=== PATIENT | female | born 1965 | race Caucasian/White ===

== ENCOUNTER 2023-06-22 11:54 | Day surgery (SDC) | payer OTHER ==
[~2023-06-22] VITALS: Ht 170.2 cm; Wt 81.8 kg
[~2023-06-22 11:54] MED LIST: ADDERALL 10 MG10 MG PO; ATORVASTATIN CA10 MG PO; CIPRO500 MG PO; DEXTROAMP-AMPHE10 MG PO; FLAGYL250 MG PO; NORCO 5-325 TA1 EACH PO; TRETINOIN20 G1 TOP; XANAX0.25 MG PO
[2023-06-22 12:16] VITALS: BP 122/91
--- NOTE | 2023-06-22 13:47 | NUR ---
06/22/23 1347 Lois Ramey 1338- PT ARRIVES TO PACU, LEFT LATERAL POSITION. LR INFUSING TO RH IV, O2 AT 3L PER NC. PT AROUSES TO VOICE, REORIENTED TO TIME AND PLACE. ABD SOFT AND NON DISTENDED. BREATHING EVEN AND NON LABORED. ALL MONITORS IN PLACE. 1343- PT CONTINUES TO REST INTERMITTENTLY. PLACED ON ROOM AIR AT THIS TIME. WILL CONTINUE TO MONITOR.
[2023-06-22 14:27] VITALS: BP 115/73
--- NOTE | 2023-06-25 08:41 | OR ---
[facility] [address] [place], [place] [address] Signed DATE OF OPERATION: 06/22/2023 SURGEON: Tiffani Tilley MD PREOPERATIVE DIAGNOSIS: Substernal and epigastric debilitating pain (episodic). POSTOPERATIVE DIAGNOSIS: Mild distal esophagitis; normal flap valve, mild antral gastritis. PROCEDURE: Esophagogastroduodenoscopy with biopsy. ANESTHESIA: Intravenous sedation fentanyl 100 mcg and Versed 4 mg. INDICATION: This 57-year-old white woman is a patient of Dr. Mc in [place], [place]. I have known her since she was 30 years old at which time breast cancer treatment was undertaken on the left side. She has had no recurrence of the breast cancer in the past 27 years. She recently has been affected by episodes of substernal pain and epigastric pain causing debilitating discomfort. She was treated empirically with PPI medication and possibly Carafate which was somewhat helpful though her symptoms continued to occur. She does not have typical reflux symptoms from the past. She has been afflicted by episodic diverticulitis but none in the past year or so. She is admitted at this time to undergo upper endoscopy to better characterize the problem. She understands the risk of bleeding, infection, perforation, and other unforeseen complications related to upper endoscopy and wished to proceed. FINDINGS: Upper endoscopy was somewhat unremarkable actually. There was mild distal esophagitis, but no ulceration. There were few gastric polyps. The flap valve was normal. Vocal cords were normal. CLOtest was negative. PROCEDURE IN DETAIL: The patient was brought to the endoscopy suite and placed in lateral decubitus position given topical hypopharyngeal anesthesia. A bite block was placed and intravenous Electronically Signed By: TIFFANI TILLEY MD 06/25/23 0841 PATIENT NAME: IWONA PITTMAN OPERATIVE REPORT DATE OF : 61 REPORT #: [id number] PHYSICIAN: TIFFANI TILLEY MD PCP: ALETHEA MC DO REPORT IS CONFIDENTIAL AND NOT TO BE RELEASED WITHOUT AUTHORIZATION [facility] [address] [place], [place] [address] Signed sedation administered to point of slurred speech and nystagmus. The Olympus video upper endoscope was passed in the hypopharynx. The vocal cords were found to be normal. Scope was advanced to the esophagus without problem. Throughout its length it was reasonably normal. There was mild inflammatory change of the distal portion, but no ulceration, Sapp's epithelium, neoplasm, or other issue. Scope was passed to the stomach which was insufflated with air. Rugal folds were normal. Scope was passed in the antrum. The pylorus was normal. Scope was passed through into the duodenum, which was essentially normal. Biopsies were taken of the 3rd, 2nd, and bulbar portions to assess for celiac disease or other problem. Careful inspection of the bulb showed no sign of ulceration. The scope was withdrawn to the antrum where biopsies were taken for both CHRISTEN and pathologic testing. Retroflexed view showed a very good flap valve. No sign of hiatal hernia. The scope was straightened and withdrawn. There were a few gastric polyps of little consequence and typical of fundic gland polyps. The scope was withdrawn to the distal esophagus and biopsies taken there as well as in the mid esophagus. The scope was carefully withdrawn and removed. The patient was taken to the recovery room in good condition. CONCLUDING DIAGNOSIS: Relatively normal upper endoscopy with mild distal esophagitis. PLAN: I will review the workup she has had already, but a CT scan of the abdomen, chest and pelvis would be advisable under the circumstances of her prior history of malignancy. This may represent diffuse esophageal spasm for which diltiazem calcium channel hakan may be advisable (15-30 mg p.o. t.i.d.). We will await if the CT scan before initiating such an intervention. She should continue on the PPI medication. She will see me back in the office following imaging studies. MD DOLLY Godinez/MODL /[id number] cc: Dr. Alexandro TrinidadAhmeek, [place] Electronically Signed By: TIFFANI TILLEY MD 06/25/23 0841 PATIENT NAME: IWONA PITTMAN OPERATIVE REPORT DATE OF : 61 REPORT #: [id number] PHYSICIAN: TIFFANI TILLEY MD PCP: ALETHEA MC DO REPORT IS CONFIDENTIAL AND NOT TO BE RELEASED WITHOUT AUTHORIZATION [facility] [address] [facility] [place], [place] [address] Signed Copies: ~ Electronically Signed By: TIFFANI TILLEY MD 06/25/23 0841 PATIENT NAME: IWONA PITTMAN OPERATIVE REPORT DATE OF : 61 REPORT #: [id number] PHYSICIAN: TIFFANI TILLEY MD PCP: ALETHEA MC DO REPORT IS CONFIDENTIAL AND NOT TO BE RELEASED WITHOUT AUTHORIZATION
--- NOTE | 2023-06-26 06:01 | PATH ---
[facility] [address] [place], [place] [address] Signed SPECIMEN(S): A DUODENAL BIOPSY SPECIMEN(S): B ANTRUM/ANTRAL BIOPSY SPECIMEN(S): C DISTAL ESOPHAGEAL BIOPSY SPECIMEN(S): D MID ESOPHAGEAL BIOPSY SPECIMEN SOURCE: A. DUODENAL BIOPSY B. ANTRUM/ANTRAL BIOPSY C. DISTAL ESOPHAGEAL BIOPSY D. MID ESOPHAGEAL BIOPSY CLINICAL HISTORY: EGD. Upper abdominal pain. Postop: Mild esophagitis. FINAL PATHOLOGIC DIAGNOSIS: A. Duodenal biopsy: - Benign duodenal mucosa, negative for specific diagnostic abnormality. B. Antrum/antral biopsy: - Benign gastric-type mucosa with focal slight chronic inflammation. - Negative for evidence of Helicobacter organisms on routine HE stain sections. C. Distal esophageal biopsy: - Benign esophageal and gastric-type mucosa with reactive features and mild chronic inflammation. - Negative for specialized intestinal metaplasia or dysplasia. D. Mid esophageal biopsy: - Benign esophageal epithelium, negative for increased epithelial eosinophils. JVR:neno MICROSCOPIC EXAMINATION: Histologic sections of all submitted blocks are examined by light microscopy. These findings, together with the gross examination, support the pathologic diagnosis. GROSS DESCRIPTION: A. The specimen, labeled and designated "Andres, N, duodenum (NOS) biopsy," is received in formalin and consists of 4 vazquez soft tissue fragments measuring 0.4 x 0.6 cm in greatest dimension, all specimens are submitted entirely in (A1). B. The specimen, labeled and designated "Andres, N, stomach, antrum/pylorus biopsy," is received in formalin and consists of 1 vazquez soft tissue fragment PATIENT NAME: IWONA CAMPOS PATHOLOGY DATE OF : 61 REPORT #: [id number] PHYSICIAN: [facility]ITCHI[facility] DIONI PCP: ALETHEA ANDERSON DO REPORT IS CONFIDENTIAL AND NOT TO BE RELEASED WITHOUT AUTHORIZATION [facility] [address] [place], [place] [address] Signed measuring 0.3 x 0.8 cm and is submitted entirely in (B1). C. The specimen, labeled and designated "Sarahi Campos, distal esophagus (NOS) biopsy," is received in formalin and consists of 7 vazquez-white soft tissue fragments measuring 0.4 x 0.5 cm in greatest dimension, all specimens are submitted entirely in (C1). D. The specimen, labeled and designated "Sarahi Campos, midesophagus biopsy," is received in formalin and consists of 4 vazquez-white soft tissue fragments measuring 0.5 x 0.5 cm in greatest dimension, all specimens are submitted entirely in (D1). MMA (under the direct supervision of a pathologist) The Gross Description was prepared using a voice recognition system. The report was reviewed for accuracy; however, sound-alike word errors, addition and/or deletions may occur. If there is any question about this report, please contact Client Services. PERFORMING LABORATORY: Technical component was performed by [email or web address], [address] [place] [id number] (CLIA# [id number]). Professional interpretation was performed by [facility] - [facility], [address] [place] [id number] (CLIA#: [id number]). Diagnostician: Ron White MD Pathologist Electronically Signed 06/25/2023 Copies: ~ PATIENT NAME: IWONA CAMPOS VEE PATHOLOGY DATE OF : 61 REPORT #: [id number] PHYSICIAN: [facility] PCP: ALETHEA ANDERSON DO REPORT IS CONFIDENTIAL AND NOT TO BE RELEASED WITHOUT AUTHORIZATION
== END 2023-06-22 14:37 | disposition home or self-care (01) ==
LOC: OPS 11:54 → DS 13:00 → OPS 13:00 → DS 13:13 → OPS 14:37
PROVIDERS: ATTEND Surgery
PROC: 0DB68ZX Excision of Stomach, Via Natural or Artificial Opening Endoscopic, Diagnostic (ICD-10-PCS; 2023-06-22)
PROC: 0DB38ZX Excision of Lower Esophagus, Via Natural or Artificial Opening Endoscopic, Diagnostic (ICD-10-PCS; principal; 2023-06-22 13:00)
DX: K20.90 Esophagitis, unspecified without bleeding (principal); K29.70 Gastritis, unspecified, without bleeding; Z91.040 Latex allergy status; F90.9 Attention-deficit hyperactivity disorder, unspecified type; Z90.49 Acquired absence of other specified parts of digestive tract
CPT/HCPCS: 99153; G0500; J2250; J3010; J7121

== ENCOUNTER 2024-12-06 10:54 | Day surgery (SDC) | payer OTHER ==
[~2024-12-06] VITALS: Ht 170.2 cm; Wt 77.7 kg
[~2024-12-06 10:54] MED LIST changes: +IBLOOD GLUCOSE TEST STRIP 1 EA TEST VI PRN; +LACTATED RINGER'S 1,000 ML IV SCH; +LIDOCAINE HCL 1% 5 ML SDV INJ ONE; +LIDOCAINE HCL 4% 50 ML BTL TOP SCH; +MIDAZOLAM HCL 5 MG/5 ML VIAL IV PRN; +fentaNYL citrate 100 MCG/2 ML VIAL IV PRN
[2024-12-06 11:08] VITALS: BP 115/69
[2024-12-06] MEDS ORDERED: VITAMIN D21250 MCG PO (11:11)
[2024-12-06] MEDS ORDERED: OMEPRAZOLE40 MG PO (11:11)
[2024-12-06] MEDS ORDERED: DILTIAZEM HCL30 MG PO (11:11)
[2024-12-06] MEDS ORDERED: DEXTROAMPHETAMI10 M1 PO (11:12)
[2024-12-06] MEDS ORDERED: ESCITALOPRAM OX20 MG PO (11:13)
[2024-12-06] MEDS ORDERED: MAGNESIUM250 M1 PO (11:13)
[2024-12-06] MEDS ORDERED: ZEPBOUND12.5 MG/0. SQ (11:23)
--- NOTE | 2024-12-06 13:45 | NUR ---
1345 pt ambulated to the bathroom and back to room. pt understanding of wait time.
[2024-12-06] MEDS ORDERED: fentaNYL citrate 100 MCG/2 ML VIAL ONE (14:15)
[2024-12-06] MEDS ORDERED: MIDAZOLAM HCL 5 MG/5 ML VIAL ONE (14:15)
--- NOTE | 2024-12-06 14:58 | NUR ---
12/06/24 1458 Rudy,Melissa 1451 PT ARRIVED TO PACU ON 3L VIA NC, PT WAKES EASILY AND DENIES CONCERNS. VSS, PT EASILY FALLS BACK TO SLEEP WITH SMALL AMOUNT OF SNORING NOTED.
[2024-12-06 15:37] VITALS: BP 103/67
--- NOTE | 2024-12-07 15:27 | PATH ---
[facility] [address] [place], [place] [address] Signed SPECIMEN(S): A DUODENAL BIOPSY SPECIMEN(S): B ANTRUM BIOPSY SPECIMEN(S): C PROXIMAL GASTRIC POLYP SPECIMEN(S): D DISTAL ESOPHAGEAL BIOPSY SPECIMEN(S): E MID ESOPHAGEAL BIOPSY SPECIMEN SOURCE: A. DUODENAL BIOPSY B. ANTRUM BIOPSY C. PROXIMAL GASTRIC POLYP D. DISTAL ESOPHAGEAL BIOPSY E. MID ESOPHAGEAL BIOPSY CLINICAL HISTORY: History of esophagus spasms/retained gastric food FINAL PATHOLOGIC DIAGNOSIS: A. Duodenum, biopsy: - Duodenal mucosa with no significant pathologic changes B. Stomach, antrum, biopsy: - Gastric antral mucosa with no significant pathologic changes - Negative for Helicobacter pylori with HE stains C. Stomach, proximal, polypectomy: - Fundic gland polyp D. Esophagus, distal, biopsy: - Esophageal squamous mucosa with no significant pathologic changes E. Esophagus, mid, biopsy: - Esophageal squamous mucosa with no significant pathologic changes BRP MICROSCOPIC EXAMINATION: Histologic sections of all submitted blocks are examined by light microscopy. These findings, together with the gross examination, support the pathologic diagnosis. GROSS DESCRIPTION: A. The specimen, labeled and designated "Andres duodenal biopsy," is received in formalin and consists of four vazquez soft tissue fragments, ranging from 0.1-0.2 cm. Entirely submitted in (A1). B. The specimen, labeled and designated "Andres, antrum biopsy," is received in formalin and consists of two vazquez soft tissue fragments, ranging from 0.2-0.3 PATIENT NAME: IWONA PITTMAN PATHOLOGY DATE OF : 61 REPORT #: [id number] PHYSICIAN: ELY WHEATLEY PCP: ALETHEA ANDERSON DO REPORT IS CONFIDENTIAL AND NOT TO BE RELEASED WITHOUT AUTHORIZATION [facility] [address] [place], [place] [address] Signed cm. Entirely submitted in (B1). C. The specimen, labeled and designated "Andres, proximal gastric polyp," is received in formalin and consists of two vazquez soft tissue fragments, ranging from 0.2-0.3 cm. Entirely submitted in (C1). D. The specimen, labeled and designated "Andres, distal esophageal biopsy," is received in formalin and consists of two vazquez soft tissue fragments, ranging from 0.5-0.6 cm. Entirely submitted in (D1). E. The specimen, labeled and designated "Andres, mid esophageal biopsy," is received in formalin and consists of one vazquez soft tissue fragment, 0.3 cm. Entirely submitted in (E1). VB (under the direct supervision of a pathologist) The Gross Description was prepared using a voice recognition system. The report was reviewed for accuracy; however, sound-alike word errors, addition and/or deletions may occur. If there is any question about this report, please contact Client Services. ADDITIONAL NOTES: Immunohistochemical and/or in situ hybridization studies if performed in this case included appropriate positive controls that reacted as expected. This test was developed and its performance characteristics determined by [facility]. It has not been cleared or approved by the U.S. Food and Drug Administration. The FDA has determined that such clearance or approval is not necessary. This test is used for clinical purposes. It should not be regarded as investigational or for research. [facility] is certified under the Clinical Laboratory Improvement Amendments of 1988 (CLIA) as qualified to perform high complexity clinical laboratory testing. PERFORMING LABORATORY: Technical component was performed by [facility], [address] [place] [address] (CLIA# [id number]). Professional interpretation was performed by [facility] - [facility], [address] [place] [place] [place] [address] (CLIA#:[id number]). Diagnostician: Kris Narvaez MD Pathologist Electronically Signed 12/07/2024 PATIENT NAME: IWONA PITTMAN PATHOLOGY DATE OF : 61 REPORT #: [id number] [facility]IC[facility]: [facility] PCP: ALETHEA ANDERSON DO REPORT IS CONFIDENTIAL AND NOT TO BE RELEASED WITHOUT AUTHORIZATION
--- NOTE | 2024-12-07 19:47 | OR ---
[facility] [address] [place], [place] [address] Signed DATE OF OPERATION: 12/06/2024 SURGEON: Tiffani Tilley MD PREOPERATIVE DIAGNOSIS: History of esophageal spasm and gastroesophageal reflux, now well controlled. POSTOPERATIVE DIAGNOSES: 1. Retained gastric contents. Relatively normal flap valve. No evidence of esophagitis. 2. Small proximal gastric polyps. PROCEDURE: Esophagogastroduodenoscopy with biopsy and polypectomy. ANESTHESIA: Intravenous sedation, fentanyl 100 mcg and Versed 3 mg. INDICATION: This 59-year-old white woman is a patient of Alethea Mc D.O. from [facility]. She has been treated me over the past number of months with severe persistent cough and findings suggestive of reflux related esophageal spasm. Medication treatment has included PPI medication and Prilosec as well as Carafate and ultimately diltiazem for the esophageal spasm. Ultimately, her symptoms became well controlled and her disabling cough and so forth essentially resolved. She has been considering recently anti-reflux operation. She has had weight loss of about 12 pounds, which has been helpful to her reflux issues as well. She is now to undergo upper endoscopy to better characterize her current situation, anticipating a consideration for anti-reflux operation. FINDINGS: The esophagus and duodenum were essentially normal. The stomach did have a few proximal gastric polyps. There was some retained gastric contents consistent with gastric dysmotility. Only after the procedure, was it known to me that she is on Zepbound GLP1 medication, which almost certainly accounts for her gastric dysmotility. DESCRIPTION OF PROCEDURE: The patient was brought to the endoscopy suite and placed in lateral decubitus position after undergoing topical lidocaine hypopharyngeal anesthesia. Full cardiopulmonary monitoring was maintained. A bite block was placed. Electronically Signed By: TIFFANI TILLEY MD 12/07/241946 PATIENT NAME: IWONA PITTMAN OPERATIVE REPORT DATE OF : 61 REPORT #: [id number] PHYSICIAN: TIFFANI TILLEY MD PCP: ALETHEA MC DO REPORT IS CONFIDENTIAL AND NOT TO BE RELEASED WITHOUT AUTHORIZATION [facility] [address] [place], [place] [address] Signed The Olympus video upper endoscope was passed in the hypopharynx. The vocal cords appeared normal. Scope was easily advanced to the esophagus throughout its length, it was normal. The scope was then passed in the stomach, immediately noted were some retained gastric contents. The scope was manipulated around this to the antrum where the pylorus was identified as normal. Scope was passed through into the duodenum. The 3rd, 2nd, and bulbar portions were normal. A biopsy was obtained to assess for celiac disease. The scope was withdrawn and biopsies then taken of the antrum for both CHRISTEN and pathologic testing. The scope was withdrawn and retroflexed view undertaken showing a surprisingly good flap valve. Retained gastric contents were once again visualized. The scope was withdrawn to the distal esophagus allowing for biopsies of the distal esophageal mucosa. It did not have a typical Z-line appearance, but rather a circumferential one suggestive of healed esophagitis. There was no sign of Sapp's epithelium, stricture, or neoplasm or ongoing inflammation. Scope was withdrawn after biopsies of that area to the mid esophagus where biopsies were also obtained. Further withdrawal of scope allowed for good visualization of the vocal cords, which were normal. Scope was removed. The patient was taken to the recovery room in good condition. CONCLUDING DIAGNOSIS: Retained gastric contents almost certainly related to Zepbound medication prescribed extensively for weight loss. This medicine was unknown to me at our last office visit. Further evaluation of her stomach for dysmotility will not be necessary under the circumstances. It is unlikely that an anti-reflux operation would be indicated at this time given the findings at hand, but I will review this with her further in the near future. I would recommend she continue the Prilosec for the time being. Continue weight loss efforts may obviate any need for anti-reflux operation long term care social worker. MD DOLLY Godinez/HARLEYL /[id number] cc: DO Mukesh Rose [place] Electronically Signed By: TIFFANI TILLEY MD 12/07/241946 PATIENT NAME: IWONA PITTMAN OPERATIVE REPORT DATE OF : 61 REPORT #: [id number] PHYSICIAN: TIFFANI TILLEY MD PCP: ALETHEA MC DO REPORT IS CONFIDENTIAL AND NOT TO BE RELEASED WITHOUT AUTHORIZATION [address] [address] Signed Copies: ~ Electronically Signed By: TIFFANI TILLEY MD 12/07/24 1947 PATIENT NAME: IWONA PITTMAN OPERATIVE REPORT DATE OF : 61 REPORT #: [id number] PHYSICIAN: TIFFANI TILLEY MD PCP: AELTHEA MC DO REPORT IS CONFIDENTIAL AND NOT TO BE RELEASED WITHOUT AUTHORIZATION
== END 2024-12-06 15:50 | disposition home or self-care (01) ==
LOC: DS 10:54 → OPS 10:54 → DS 12:15 → OPS 15:50
PROVIDERS: ATTEND Surgery
PROC: 0DB68ZX Excision of Stomach, Via Natural or Artificial Opening Endoscopic, Diagnostic (ICD-10-PCS; 2024-12-06)
PROC: 0DB28ZX Excision of Middle Esophagus, Via Natural or Artificial Opening Endoscopic, Diagnostic (ICD-10-PCS; 2024-12-06)
PROC: 0DB38ZX Excision of Lower Esophagus, Via Natural or Artificial Opening Endoscopic, Diagnostic (ICD-10-PCS; 2024-12-06)
PROC: 0DB98ZX Excision of Duodenum, Via Natural or Artificial Opening Endoscopic, Diagnostic (ICD-10-PCS; principal; 2024-12-06 12:15)
DX: K31.7 Polyp of stomach and duodenum (principal); Z91.040 Latex allergy status
CPT/HCPCS: 99153; G0500; J2250; J3010; J7121

== ENCOUNTER 2025-03-17 08:13 | Day surgery (SDC) | payer OTHER ==
[~2025-03-17] VITALS: Ht 170.2 cm; Wt 76.4 kg
--- NOTE | ~2025-03-17 | OR ---
[facility] [address] [place], [place] [address] Draft DATE OF OPERATION: 03/17/2025 SURGEON: Tiffani Tilley MD PREOPERATIVE DIAGNOSES: 1. Colon screening. 2. History of diverticulitis. 3. Last colonoscopy 2014. POSTOPERATIVE DIAGNOSES: 1. Sigmoid diverticulosis. 2. Polyps x2 (splenic flexure and low rectum). PROCEDURE: Total colonoscopy to cecum with cold morcellation polypectomy x1 and hot snare polypectomy x1. ANESTHESIA: Intravenous sedation; fentanyl 150 mcg and Versed 5 mg. INDICATION: This 59-year-old white woman is a patient of Aleteha Mc D.O. of [facility]. She is well known to me from the past having been treated for breast cancer in her 30s and in recent years reflux-related chronic cough. She last underwent colonoscopy in 2014. She did have diverticulitis in the past few years. She currently is symptom free having no bleeding, diarrhea or constipation. She understands the risk of bleeding, infection, and perforation related to colonoscopy and wished to proceed. FINDINGS: The prep was excellent. Complete colonoscopy was undertaken of the cecum with full intubation of the cecum. She had numerous large diverticula of the sigmoid and left colon. There was a small polyp of the splenic flexure and a relatively larger 1 cm pedunculated polyp in the very low rectum, both were excised completely. DESCRIPTION OF PROCEDURE: The patient was brought to the endoscopy suite and placed in the lateral decubitus position, given intravenous sedation to the point slurred speech and nystagmus. Digital rectal examination was normal. PATIENT NAME: IWONA PITTMAN OPERATIVE REPORT DATE OF : 61 REPORT #: [id number] PHYSICIAN: TIFFANI TILLEY MD PCP: ALETHEA MC DO REPORT IS CONFIDENTIAL AND NOT TO BE RELEASED WITHOUT AUTHORIZATION [facility] [address] [place], [place] [address] Draft An Olympus video colonoscope was passed in the rectum and manipulated throughout the colon ultimately intubating the cecum itself. The ileocecal valve and appendiceal orifice were normal. Scope was withdrawn from that point and examination throughout showed no sign of abnormality into the splenic flexure at about 90 cm where a small sessile polyp was noted, this was excised with cold morcellation technique. Further withdrawal showed numerous diverticula of the sigmoid and left colon as previously. Upon withdrawal of scope to the rectum, in the very lowest portion of the rectum just above the dentate line was an adenomatous polyp which was pedunculated. Retroflexed view allowed for positioning of the snare and hot snare polypectomy undertaken. The polyp was removed and the examination showed some oozing and therefore additional electrocautery was applied to the site allowing for good hemostasis. The scope was removed and the patient was taken to the recovery room in good condition. CONCLUDING DIAGNOSES: Polyps x2 and diverticulosis. PLAN: Recommend repeat colonoscopy in 5 to 7 years, sooner if symptoms should develop. The patient will return to the ongoing care of [facility]. MD DOLLY Godinez/ALFONSO /[id number] cc: Dr. Mc Copies: ~ PATIENT NAME: IWONA PITTMAN OPERATIVE REPORT DATE OF : 61 REPORT #: [id number] PHYSICIAN: TIFFANI TILLEY MD PCP: ALETHEA MC DO REPORT IS CONFIDENTIAL AND NOT TO BE RELEASED WITHOUT AUTHORIZATION
[~2025-03-17 08:13] MED LIST changes: +DEXTROAMPHETAMI10 M1 PO; +DILTIAZEM HCL30 MG PO; +ESCITALOPRAM OX20 MG PO; -LIDOCAINE HCL 4% 50 ML BTL TOP SCH; +MAGNESIUM250 M1 PO; +OMEPRAZOLE40 MG PO; +VITAMIN D21250 MCG PO; +ZEPBOUND12.5 MG/0. SQ
[2025-03-17 08:43] VITALS: BP 114/66
[2025-03-17] MEDS ORDERED: fentaNYL citrate 100 MCG/2 ML VIAL ONE (09:20)
[2025-03-17] MEDS ORDERED: MIDAZOLAM HCL 5 MG/5 ML VIAL ONE (09:20)
--- NOTE | 2025-03-17 10:40 | NUR ---
03/17/25 1040 Haley Hurtado 1030-PT ARRIVES TO PACU, VIA STRETCHER, RESTING ON LT SIDE, PT NOT RESPONISVE TO VERBAL OR TACTILE STIMULI, VSS ON 3L VIA NC, RR EVEN AND UNLABORED.
[2025-03-17 11:16] VITALS: BP 99/56
--- NOTE | 2025-03-21 12:12 | PATH ---
[facility] [address] [facility] [place], [place] [address] Signed SPECIMEN(S): A SPLENIC FLEXURE POLYP SPECIMEN(S): B DISTAL RECTUM POLYP SPECIMEN SOURCE: A. SPLENIC FLEXURE POLYP B. DISTAL RECTUM POLYP CLINICAL HISTORY: Screening FINAL PATHOLOGIC DIAGNOSIS: A. Splenic flexure polyp: - Tubular adenoma (one fragment). B. Distal rectal polyp: - Tubular adenoma. - The polyp stalk margin appears free of dysplasia on these sections. JVR:rhys MICROSCOPIC EXAMINATION: Histologic sections of all submitted blocks are examined by light microscopy. These findings, together with the gross examination, support the pathologic diagnosis. GROSS DESCRIPTION: A. The specimen, labeled and designated "Andres, splenic flexure polyp," is received in formalin and consists of four vazquez soft tissue fragments, ranging from 0.2-0.4 cm. Entirely submitted in (A1). B. The specimen, labeled and designated "Andres, distal rectum polyp," is received in formalin and consists of a fragment of pink-vazquez soft tissue (0.4 cm in greatest dimension), and a pink-vazquez polypoid piece of tissue (0.9 x 0.8 x 0.8 cm). The resection margin of the polypoid piece of tissue is inked blue, and the tissue is quadrisected to reveal pink-vazquez soft cut surfaces. The specimen is submitted entirely in cassette (B1). VB (under the direct supervision of a pathologist) The Gross Description was prepared using a voice recognition system. The report was reviewed for accuracy; however, sound-alike word errors, addition and/or deletions may occur. If there is any question about this report, please contact Client Services. PERFORMING LABORATORY: PATIENT NAME: IWONA PITTMAN PATHOLOGY DATE OF : 61 REPORT #: [id number] PHYSICIAN: [facility] PCP: ALETHEA ANDERSON DO REPORT IS CONFIDENTIAL AND NOT TO BE RELEASED WITHOUT AUTHORIZATION [facility] [address] [place], [place] [address] Signed Technical component was performed by [facility], [address] [place] [id number] (CLIA# [id number]). Professional interpretation was performed by [facility] - [facility], [address] [place] [id number] (CLIA#: [id number]). Diagnostician: Ron White MD Pathologist Electronically Signed 03/21/2025 Copies: ~ PATIENT NAME: IWONA PITTMAN PATHOLOGY DATE OF : 61 REPORT #: [id number] PHYSICIAN: [facility] PCP: ALETHEA ANDERSON DO REPORT IS CONFIDENTIAL AND NOT TO BE RELEASED WITHOUT AUTHORIZATION
== END 2025-03-17 11:28 | disposition home or self-care (01) ==
LOC: OPS 08:13 → DS 08:13 → OPS 08:45 → DS 08:45 → OPS 09:40
PROVIDERS: ATTEND Surgery
PROC: 0DBP8ZX Excision of Rectum, Via Natural or Artificial Opening Endoscopic, Diagnostic (ICD-10-PCS; 2025-03-17)
PROC: 0DBH8ZX Excision of Cecum, Via Natural or Artificial Opening Endoscopic, Diagnostic (ICD-10-PCS; principal; 2025-03-17 09:40)
DX: Z12.11 Encounter for screening for malignant neoplasm of colon (principal); D12.7 Benign neoplasm of rectosigmoid junction; D12.3 Benign neoplasm of transverse colon; K57.30 Diverticulosis of large intestine without perforation or abscess without bleeding; K22.4 Dyskinesia of esophagus; Z90.49 Acquired absence of other specified parts of digestive tract; Z85.3 Personal history of malignant neoplasm of breast; Z91.040 Latex allergy status; Z79.899 Other long term (current) drug therapy
CPT/HCPCS: 99153; G0500; J2250; J3010; J7121